=== PATIENT | male | born 1975 | race Caucasian/White ===

== ENCOUNTER 2018-06-05 10:12 | Outpatient (CLI) | payer BC ==
--- NOTE | 2018-06-05 18:54 | ULT ---
RENAL ULTRASOUND: 06/05/18 Ultrasonography of the urinary tract was performed. The patient had prior trauma which ultimately peyton d to removal of the left kidney. Comparison was made with an August 2017 CT scan of the abdomen. Today, the right kidney measures 11.0 x 4.2 x 5.8 cm. Cortex is normal in thickness and echogenicity. No mass, hydronephrosis or other focal pathology was seen in the right kidney. The left renal fossa is empty as that kidney has been removed. Several frames through the urinary greg dder showed a right ureteral jet. No internal defects were seen. The wall was 3 mm thick which is pro bably normal given that it is not fully distended. The patient's prostate was measured at approximate ly 2.3 x 3.7 x 3.9 cm. IMPRESSION: 1. Normal appearing right kidney. 2. Status post left nephrectomy. POS: HOME
== END 2018-06-05 10:13 | disposition home or self-care (01) ==
LOC: BURULT 10:12
PROVIDERS: ATTEND Internal Medicine Nephrology
DX: N17.9 Acute kidney failure, unspecified (principal); Z90.5 Acquired absence of kidney
CPT/HCPCS: 76770

== ENCOUNTER 2019-12-23 12:58 | Outpatient (CLI) | payer BC ==
--- NOTE | 2019-12-23 13:29 | RAD ---
Exam:3 views left hand HISTORY: Pain. Deformity. COMPARISON: None FINDINGS: Preserved joint spaces. Mildly displaced oblique fourth metacarpal fracture. Associated sof t tissue swelling. IMPRESSION: Fourth metacarpal fracture.
== END 2019-12-23 12:59 | disposition home or self-care (01) ==
LOC: BURRAD 12:58
PROVIDERS: ATTEND Family Medicine
DX: M79.642 Pain in left hand (principal); S62.305A Unspecified fracture of fourth metacarpal bone, left hand, initial encounter for closed fracture